=== PATIENT | female | born 1985 | race Caucasian/White ===

== ENCOUNTER 2016-12-20 16:15 | Emergency (ER) | payer OTHER ==
--- NOTE | ~2016-12-20 | EKG ---
PATIENT: MARINO LOZADA UNIT #: [id number] Ventricular Rate: 91 BPM Atrial Rate: 91 BPM P-R Interval: 122 ms QRS Duration: 80 ms Q-T Interval: 374 ms QTC Calculation(Bezet): 460 ms P [place]: 72 degrees Calculated R [place]: 79 degrees Calculated T [place]: 46 degrees Diagnosis Line: Normal sinus rhythm Diagnosis Line: Normal ECG Diagnosis Line: No previous ECGs available Diagnosis Line: Confirmed by EMELY GIMENEZ MD ([id number]) on 12/21/2016 Diagnosis Line: 6:20:57 PM INTERPRETING MD: AMMY MARIN
[2016-12-20 14:58] LABS: BASOPHIL% 0.7 % (0-2.5); EOSINOPHIL% 0.2 % (0.0-7.0); HEMATOCRIT 40.7 % (35.0-45.0); HEMOGLOBIN 13.4 gm/dL (12.0-16.0); LYMPHOCYTE# 1.7 X10e3 (1.0-3.5); LYMPHOCYTE% 29.1 % (17.0-45.0); MEAN CELL VOLUME 85.7 FL (83-96); MEAN CORPUSCULAR HEMOGLOBIN 28.2 PG (28-34); MEAN CORPUSCULAR HGB CONC 32.9 g/dL (30-36); MEAN PLATELET VOLUME 9.4 FL (6.5-11.5); MONOCYTE# 0.5 X10e3 (0-1.0); MONOCYTE% 8.9 % (3.0-12.0); NEUTROPHIL# 3.6 X10e3 (1.5-7.1); NEUTROPHIL% 61.1 % (40-75); PLATELET COUNT 238 X10e3 (140-420); RED BLOOD COUNT 4.74 X10e (3.90-5.30); RED CELL DISTRIBUTION WIDTH 14.2 % (11.0-15.5); WHITE BLOOD COUNT 5.9 X10e3 (4.0-10.5)
[2016-12-20 15:01] LABS: DIFF IND NO
[2016-12-20 15:22] LABS: ALBUMIN SERUM 5.1 g/dL (3.5-5.0); ALKALINE PHOSPHATASE 53 U/L (32-92); ALT (SGPT) 15 U/L (10-40); AST (SGOT) 22 U/L (10-42); BILIRUBIN, DIRECT 0.2 mg/dL (0.0-0.2); BILIRUBIN,INDIRECT 1.3 mg/dL (0.0-0.9); BILIRUBIN,TOTAL 1.5 mg/dL (0.2-2.0); BLOOD UREA NITROGEN 20 mg/dL (9-23); BUN/CREATININE RATIO 28.57; CALCIUM SERUM 9.6 mg/dL (8.4-10.2); CARBON DIOXIDE 28 mmol/L (22-31); CHLORIDE 105 mmol/L (100-111); CREATININE SERUM 0.7 mg/dL (0.6-1.4); GLOM FILT RATE Estimated ABOVE60 mL/min (>60); GLUCOSE FASTING 86 mg/dL (70-110); POTASSIUM 4.3 mmol/L (3.5-5.1); PROTEIN TOTAL SERUM 9.3 g/dL (6.0-8.3); SODIUM 139 mmol/L (135-145)
[~2016-12-20 16:15] MED LIST: ATARAX PO; AUGMENTIN1 TAB.SR1 PO; CELEXA PO; FLEXERIL10 MG PO; KEFLEX PO; LORTAB 5/500 TA1 TA1 PO; MOTRIN400 MG PO; NAPROXEN SODIU500 MG PO; ORUDIS75 M1 PO; PERCOCET5/325 PO; TAMIFLU75 M1 DOB; VIBRAMYCIN100 M1 PO; VICODIN 5/1 TAB 5/50 PO; VICODIN 5/500 T1 TAB PO; VOLTAREN25 MG DOB; VOLTAREN75 MG PO
== END 2016-12-20 18:26 | disposition left against medical advice (07) ==
LOC: CED 16:15
PROVIDERS: Emergency Medicine
DX: Z53.21 Procedure and treatment not carried out due to patient leaving prior to being seen by health care provider (principal)
CPT/HCPCS: 80048; 80076; 85025; 93005

== ENCOUNTER → 2016-12-28 | Emergency (ER) | payer OTHER ==
[2016-12-28 20:42] LABS: INFLUENZA A NEG (NEG); INFLUENZA B NEG (NEG)
== END | disposition home or self-care (01) ==
LOC: CED 22:00
PROVIDERS: Nurse Practitioner
DX: H60.91 Unspecified otitis externa, right ear (principal); F17.210 Nicotine dependence, cigarettes, uncomplicated
CPT/HCPCS: 87651; 87804; 99282

== ENCOUNTER 2017-02-07 23:58 | Emergency (ER) | payer OTHER ==
--- NOTE | ~2017-02-07 | CT2 ---
[facility] A Service of [facility] RADIOLOGY TEXT RESULTS PATIENT: MARINO LOZADA LOCATION: [facility] : 89 UNIT #: [id number] AGE: [address]: Abdi Mayer DO SEX: F ORDER DR: [id number] [facility] [address] [place], [place] [address] [id number] E MR#: [id number] #: [id number] NAME: MARINO LOZADA : 1985 SEX: F STUDY DATE/TIME: 02/08/2017 3:10 UNIT: [facility] ROOM: STUDY DESCRIPTION: CT Abd and Pelv W Cont Attending Physician: Abdi Mayer D.O. Ordering Physician: Abdi Mayer D.O. Primary Care Physician: [facility] IMAGING REPORT This report is preliminary unless electronic signature is present EXAM CT abdomen and pelvis with contrast INDICATIONS Right lower quadrant pain for 2 days which is getting worse. COMPARISON 10/11/2015 TECHNIQUE Patient was given 100 mL of Isovue-370 and axial 5-mm images were obtained through the abdomen and pelvis. This CT exam was performed with one or more of the following radiation dose reduction techniques: Automatic exposure control, adjustment of mA and/or kV according to patient size, and iterative reconstruction. FINDINGS The lung bases are clear. The liver, gallbladder, spleen, pancreas, adrenal glands and kidneys are normal in appearance. The aorta is normal in size. The patient has very little body fat. I cannot identify the appendix, but I do not see any evidence of appendicitis. Uterus and left ovary appear normal. The right ovary has a collapsing 18-mm cyst. There is no free fluid. The bones are unremarkable. IMPRESSION 1. The patient has very little body fat and there is no oral contrast, which limits evaluation of the bowel. I do not see any evidence of appendicitis, but I cannot see the appendix or even clearly identify the ileocecal region and cecum. 2. There is a collapsing cyst in the right ovary measuring close to 2 cm in diameter. This may be the cause of the patient's right-sided pain. There is no free fluid visible. [facility]. [facility] A Service of [facility] RADIOLOGY TEXT RESULTS PATIENT: MARINO LOZADA LOCATION: [facility] : 89 UNIT #: [id number] AGE: [address]: Abdi Mayer DO SEX: F ORDER DR: 3. The study is otherwise normal. Dictated by... Arsenio Pickard M.D. THIS IS AN ELECTRONICALLY VERIFIED REPORT Arsenio Pickard M.D. at 02/08/2017 5:51 AM FEL/psc TD: 02/08/2017 04:33 JOB #: [id number] MEDICAL IMAGING REPORT Page 1 of 1 COPY
[2017-02-08 01:28] LABS: URINE SOURCE CLEAN CATCH
[2017-02-08 01:33] LABS: URINE APPEARANCE CLEAR; URINE BILIRUBIN NEG (NEG); URINE BLOOD NEG (NEG); URINE COLOR YELLOW; URINE GLUCOSE NEG (NEG); URINE KETONE NEG (NEG); URINE LEUKOCYTE ESTERASE NEG (NEG); URINE NITRATE NEG (NEG); URINE PH 5.5 (5-8); URINE PROTEIN NEG (NEG); URINE SPECIFIC GRAVITY 1.027 (1.003-1.035)
[2017-02-08 01:33] LABS: BASOPHIL% 0.4 % (0-2.5); EOSINOPHIL% 0.2 % (0.0-7.0); HEMOGLOBIN 11.4 gm/dL (12.0-16.0); LYMPHOCYTE# 2.3 X10e3 (1.0-3.5); LYMPHOCYTE% 30.2 % (17.0-45.0); MEAN CELL VOLUME 88.2 FL (83-96); MEAN CORPUSCULAR HEMOGLOBIN 28.7 PG (28-34); MEAN CORPUSCULAR HGB CONC 32.5 g/dL (30-36); MEAN PLATELET VOLUME 9.5 FL (6.5-11.5); MONOCYTE# 0.7 X10e3 (0-1.0); MONOCYTE% 9.5 % (3.0-12.0); NEUTROPHIL# 4.5 X10e3 (1.5-7.1); NEUTROPHIL% 59.7 % (40-75); PLATELET COUNT 190 X10e3 (140-420); RED BLOOD COUNT 3.97 X10e (3.90-5.30); RED CELL DISTRIBUTION WIDTH 15.6 % (11.0-15.5); WHITE BLOOD COUNT 7.6 X10e3 (4.0-10.5)
[2017-02-08 01:35] LABS: DIFF IND NO
[2017-02-08 01:37] LABS: CULTURE INDICATED? NO
[2017-02-08 02:12] LABS: ALBUMIN SERUM 3.5 g/dL (3.5-5.0); BILIRUBIN, DIRECT 0.1 mg/dL (0.0-0.2); BILIRUBIN,INDIRECT 0.5 mg/dL (0.0-0.9); BILIRUBIN,TOTAL 0.6 mg/dL (0.2-2.0); BUN/CREATININE RATIO 22.85; CALCIUM SERUM 8.9 mg/dL (8.4-10.2); CREATININE SERUM 0.7 mg/dL (0.6-1.4); GLOM FILT RATE Estimated 117.1 mL/min (>60); POTASSIUM 4.4 mmol/L (3.5-5.1); PROTEIN TOTAL SERUM 6.5 g/dL (6.0-8.3)
[2017-02-10 04:34] LABS: CHLAMYDIA TRACH Not Detected (Not Detected); N GONOR Not Detected (Not Detected)
== END 2017-02-08 04:30 | disposition home or self-care (01) ==
LOC: CED 23:58
PROVIDERS: Emergency Medicine
DX: N76.0 Acute vaginitis (principal); F17.200 Nicotine dependence, unspecified, uncomplicated
CPT/HCPCS: 36415; 74177; 80048; 80076; 81003; 83690; 84703; 85025; 87491; 87591; 87808; 87905; 96372; 96374; 99284; J0696; J1885; Q9967

== ENCOUNTER 2017-05-06 11:06 | Emergency (ER) | payer OTHER ==
[~2017-05-06] VITALS: Ht 149.9 cm; Wt 48.1 kg
--- NOTE | ~2017-05-06 | CR230 ---
[facility] A Service of [facility] RADIOLOGY TEXT RESULTS PATIENT: MARINO LOZADA LOCATION: [facility] : 89 UNIT #: [id number] AGE: [address]: Tracy Blankenship APRN SEX: F ORDER DR: [id number] [facility] [address] [place], [place] [address] [id number] E MR#: [id number] Acc #: [id number] NAME: MARINO LOZADA. : 1985 SEX: F STUDY DATE/TIME: 05/06/2017 11:39 UNIT: [facility] ROOM: STUDY DESCRIPTION: CR Shoulder Min 2 View Rt Attending Physician: Tracy Blankenship A.P.R.N. Ordering Physician: [facility] MEDICAL IMAGING REPORT This report is preliminary unless electronic signature is present EXAM Right shoulder 3 views INDICATIONS Right shoulder pain since yesterday. COMPARISON 03/22/2015. FINDINGS Stable postoperative changes of the right clavicle. No evidence for acute fracture or dislocation. IMPRESSION No acute fracture or dislocation. Stable postoperative changes of the clavicle. Dictated by... Austin Caldwell M.D. THIS IS AN ELECTRONICALLY VERIFIED REPORT Austin Caldwell M.D. at 05/07/2017 5:00 PM ARS/pcl TD: 05/06/2017 15:46 JOB #: [id number] MEDICAL IMAGING REPORT Page 1 of 1 COPY
== END 2017-05-06 12:12 | disposition home or self-care (01) ==
LOC: CED 11:06 → CFTX 11:06
DX: S43.401A Unspecified sprain of right shoulder joint, initial encounter (principal); F17.210 Nicotine dependence, cigarettes, uncomplicated; Z98.51 Tubal ligation status; X50.1XXA Overexertion from prolonged static or awkward postures, initial encounter; Y92.89 Other specified places as the place of occurrence of the external cause
CPT/HCPCS: 73030; 99283